=== PATIENT | female | born 1965 | race Caucasian/White ===

== ENCOUNTER 2016-08-15 19:04 | Emergency (ER) | payer SELFPAY | END 2016-08-15 21:17 | disposition home or self-care (01) | LOC: FER 19:04 | DX: S81.812A Laceration without foreign body, left lower leg, initial encounter (principal); Z23 Encounter for immunization; W45.8XXA Other foreign body or object entering through skin, initial encounter; Y92.828 Other wilderness area as the place of occurrence of the external cause | CPT/HCPCS: 90471; 90715 ==